=== PATIENT | female | born 1995 | race Caucasian/White ===

== ENCOUNTER 2019-05-24 09:50 | Emergency (ER) | payer MEDICAID ==
[~2019-05-24] VITALS: Ht 160 cm; Wt 74.4 kg
[2019-05-24 09:59] VITALS: BP 127/76
--- NOTE | 2019-05-24 09:59 | NUR ---
PT TAKEN TO ER BED 12
--- NOTE | 2019-05-24 10:11 | NUR ---
C/O RECURRING HACKING COUGH, WHEEZING, AND SOB X 2 WKS AND WORSENING OVER THE PAST WEEK. FULL CLEAR SPEECH AT THIS TIME. 100%, NAD, LUNGS CTAB. VSS; BED LOWED & LOW WITH BEDRAILS UP X1; ERMD TO EVALUATE. HX--DENIES RX-- CONTROL Addendum: 05/24/19 at 1015 by [facility]A DENIES N/V/D. STATES LOW GRADE TEMP OF 100 LAST NIGHT. TAKING MUCINEX TO SOME RELIEF.
--- NOTE | 2019-05-24 10:57 | NUR ---
DR WELCH EVALUATING PT AT BEDSIDE
--- NOTE | 2019-05-24 11:26 | NUR ---
Patient discharged with v/s stable. Written and verbal after care instructions given and explained. Patient alert, oriented and verbalized understanding of instructions. Ambulatory with steady gait. All questions addressed prior to discharge. ID band removed. Patient advised to follow up with PMD. Rx of PREDNISONE AND ALBUTEROL given. Patient educated on indication of medication including possible reaction and side effects. Opportunity to ask questions provided and answered.
[2019-05-24 11:27] VITALS: BP 127/76
== END 2019-05-24 11:26 | disposition home or self-care (01) ==
LOC: MED 09:50
DX: R05 Cough (principal); J45.909 Unspecified asthma, uncomplicated
CPT/HCPCS: 99283